=== PATIENT | male | born 1995 | race Caucasian/White ===

== ENCOUNTER 2017-02-14 22:33 | Emergency (ER) | payer SELFPAY ==
[~2017-02-14 22:33] MED LIST: Dextrose 5 % And 0.9 % NaCl 1000 ml Bag ONE; Potassium Chloride 20 MEQ/100 ML PREMIX BAG ONE; Sodium Chloride 0.9% 1,000 ML BAG ONE
[2017-02-14] MEDS ORDERED: Naloxone HCl 0.4 mg/ml Vial ONE (22:38)
[2017-02-14] MEDS ORDERED: Naloxone HCl 2 mg/2 ml Syringe ONE (22:39)
[2017-02-14 23:10] LABS: Band 2 % (5-11); Hemoglobin 15.2 g/dL (14.0-18.0); MDiff Complete? YES; Manual Diff?? YES; Mean Corpuscular HGB CONC 34.4 g/dL (32.0-36.0); Mean Corpuscular Volume 87.2 fL (80.0-94.0); Neutrophil 71 % (42-75); Platelet Count 458 thou/uL (130-400); RBC Distribution Width 11.3 % (11.5-14.5); Red Blood Cell (RBC) Count 5.08 mill/uL (4.70-6.10)
[2017-02-14 23:11] LABS: Anisocytosis SLIGHT = 6-15 cells (100X) (0-5/hpf); Eosinophils 2 % (0-10); Lymphocytes 23 % (21-51); Monocytes 2 % (0-10)
[2017-02-14 23:12] LABS: PLT Morphology Comment Appears Adequate
[2017-02-14 23:16] LABS: Acetaminophen Less than 3.0 mcg/mL (10.0-30.0); Alcohol 117 mg/dL (Less than 10); Anion Gap 23 mmol/L (10-20); BUN (Urea Nitrogen) 17 mg/dL (8.9-20.6); Calc. Creatinine Clearance 0 mL/min (70-130); Carbon Dioxide 17 mmol/L (22-29); Chloride 102 mmol/L (98-107); Estimated GFR-MDRD 67; Salicylate Less than 5.0 mg/dL (15.0-30.0); Sodium 139 mmol/L (136-145)
[2017-02-14] MEDS ORDERED: Dextrose 50% Abboject 50 ML SYRINGE ONE (23:20)
[2017-02-14] MEDS ORDERED: NS 0.9% w/ 40 MEQ KCL 0 ML IV ONE (23:32)
[2017-02-14 23:36] LABS: Amphetamine Detected (NotDetected); Barbiturates Screen Not Detected (NotDetected); Benzodiazepine Screen Not Detected (NotDetected); Cocaine Metabolite Screen Not Detected (NotDetected); Medtox Control Line Valid? VALID (VALID); Methadone Not Detected (NotDetected); Methamphetamine Not Detected (NotDetected); Opiate Screen Not Detected (NotDetected); Oxycodone Screen Not Detected (NotDetected); Phencyclidine (PCP) Not Detected (NotDetected); THC/Cannabinoid Screen Not Detected (NotDetected); Tricyclic Screen Not Detected (NotDetected)
[2017-02-15] MEDS ORDERED: Ziprasidone 20 MG VIAL ONE (00:03)
== END 2017-02-15 01:00 | disposition short-term general hospital (02) ==
LOC: MADERS 22:33
DX: T43.621A Poisoning by amphetamines, accidental (unintentional), initial encounter (principal); T42.4X1A Poisoning by benzodiazepines, accidental (unintentional), initial encounter; T51.91XA Toxic effect of unspecified alcohol, accidental (unintentional), initial encounter; R45.1 Restlessness and agitation; F17.210 Nicotine dependence, cigarettes, uncomplicated
CPT/HCPCS: 36416; 51702; 80048; 80306; 80307; 85025; 94760; 96361; 96372; 96374; 96375; 99292; J2310; J3480; J3486; J7042; J7050

== ENCOUNTER 2018-06-04 07:15 | Emergency (ER) | payer SELFPAY ==
[~2018-06-04 07:15] MED LIST changes: -Dextrose 5 % And 0.9 % NaCl 1000 ml Bag ONE; +Iopamidol 370 76% 100 ML VIAL ONE; -Potassium Chloride 20 MEQ/100 ML PREMIX BAG ONE; -Sodium Chloride 0.9% 1,000 ML BAG ONE
[2018-06-04 08:12] LABS: #Basophils 0.2 thou/uL (0.0-0.2); #Eosinphils 0.4 thou/uL (0.0-0.7); #Lymphocytes 2.3 thou/uL (1.20-3.40); #Monocytes 1.6 thou/uL (0.11-0.59); #Neutrophils 13.1 thou/uL (1.40-6.50); %Basophils 1.1 % (0.0-1.0); %Eosinophils 2.1 % (0.0-10.0); %Monocytes 8.9 % (0.0-10.0); %Neutrophils 74.9 % (42.0-75.0); Hemoglobin 14.2 g/dL (14.0-18.0); Mean Corpuscular HGB CONC 33.9 g/dL (32.0-36.0); Mean Corpuscular Hemoglobin 29.4 pg (27.0-31.0); Mean Corpuscular Volume 86.6 fL (78.0-98.0); Mean Platelet Volume 5.9 fL (7.4-10.4); Platelet Count 364 thou/uL (130-400); RBC Distribution Width 12.3 % (11.5-14.5); Red Blood Cell (RBC) Count 4.84 mill/uL (4.70-6.10); White Blood Cell (WBC) Count 17.5 thou/uL (4.8-10.8)
[2018-06-04 08:27] LABS: ALT (SGPT) 58 U/L (8-55); AST (SGOT) 39 U/L (5-34); Albumin 4.2 g/dL (3.5-5.0); Alkaline Phosphatase 69 U/L (40-150); Anion Gap 15 mmol/L (10-20); BUN (Urea Nitrogen) 12 mg/dL (8.9-20.6); Bilirubin, Total 0.9 mg/dL (0.2-1.2); Calc. Creatinine Clearance 0 mL/min (70-130); Calcium 9.5 mg/dL (7.8-10.44); Carbon Dioxide 26 mmol/L (22-29); Chloride 104 mmol/L (98-107); Estimated GFR-MDRD Greater than 90; Globulin 3.3 g/dL (2.4-3.5); Glucose 95 mg/dL (70-105); Potassium 4.2 mmol/L (3.5-5.1); Protein, Total 7.5 g/dL (6.0-8.3); Sodium 141 mmol/L (136-145)
[2018-06-04] MEDS ORDERED: Naproxen 500 MG TAB ONE (08:33)
[2018-06-04] MEDS ORDERED: HYDROcodone/Acetaminophen 10/325 mg Tablet ONE (08:33)
[2018-06-04] MEDS ORDERED: Clindamycin 150 MG CAP ONE (08:33)
[2018-06-04 08:40] LABS: MONO NEGATIVE CONTROL ZONE White (Negative) (White); MONO POSITIVE CONTROL Pink Line (Positive) (PINK/RED); Mononucleosis NEGATIVE (NEGATIVE)
--- NOTE | 2018-06-04 09:33 | CT ---
CT OF NECK SOFT TISSUES: Date: 06/04/18 INDICATION: Severe right jaw pain, right side otalgia with dysphagia and right side neck edema. FINDINGS: There is enlargement and heterogeneity of the right palatine tonsil with multifocal hypoattenuation, the largest of which measures approximately 1.5 cm, compatible with multifocal right tonsillar absces s formation. This does narrow the oropharyngeal airway with associated leftward deviation. There is r eactive adenopathy bilaterally, more notable on the right, most pronounced at the right Level IIA zon e. Thyroid gland is unremarkable. There is no significant mass effect at the level of the glottis. Th ere is effacement of the right piriform sinus and right vallecula due to edema from the above describ ed inflammatory process. Scattered paranasal sinus mucosal thickening is present. The salivary gland reveals no intrinsic pathology. IMPRESSION: Multifocal right side palatine tonsillar abscess formation with associated edema and adenopathy. Satnam mmend urgent ENT consultation for further characterization, as findings do narrow and displace the or opharyngeal airway. POS: SHIV
== END 2018-06-04 09:30 | disposition home or self-care (01) ==
LOC: MADERS 07:15
DX: J36 Peritonsillar abscess (principal); F17.210 Nicotine dependence, cigarettes, uncomplicated
CPT/HCPCS: 36415; 70491; 80053; 85025; 86308; 87040; 87081; 87430

== ENCOUNTER 2020-04-29 00:13 | Emergency (ER) | payer SELFPAY ==
[2020-04-29] MEDS ORDERED: Ondansetron PF 4 MG/2 ML Vial ONE (00:34)
[2020-04-29] MEDS ORDERED: Ketorolac Tromethamine 30 MG/ML VIAL ONE (00:34)
[2020-04-29 00:40] LABS: #Basophils 0.1 thou/uL (0.0-0.2); #Eosinphils 0.3 thou/uL (0.0-0.7); #Lymphocytes 2.4 thou/uL (1.20-3.40); #Monocytes 0.8 thou/uL (0.11-0.59); #Neutrophils 10.6 thou/uL (1.40-6.50); %Basophils 0.5 % (0.0-1.0); %Lymphocytes 16.9 % (21.0-51.0); %Monocytes 5.7 % (0.0-10.0); Hemoglobin 14.7 g/dL (14.0-18.0); Mean Corpuscular Hemoglobin 28.9 pg (27.0-31.0); Mean Corpuscular Volume 90.1 fL (78.0-98.0); Platelet Count 338 thou/uL (130-400); Red Blood Cell (RBC) Count 5.11 mill/uL (4.70-6.10); White Blood Cell (WBC) Count 14.1 thou/uL (4.8-10.8)
[2020-04-29 01:31] LABS: ALT (SGPT) 28 U/L (8-55); Albumin 4.9 g/dL (3.5-5.0); Alkaline Phosphatase 57 U/L (40-110); Anion Gap 19 mmol/L (10-20); Bilirubin, Total 0.4 mg/dL (0.2-1.2); Calc. Creatinine Clearance 0 mL/min (70-130); Calcium 9.4 mg/dL (7.8-10.44); Carbon Dioxide 21 mmol/L (22-29); Chloride 104 mmol/L (98-107); Estimated GFR-MDRD Greater than 90; Glucose 95 mg/dL (70-105); Protein, Total 7.9 g/dL (6.0-8.3); Sodium 140 mmol/L (136-145)
[2020-04-29 01:36] LABS: Bilirubin Negative (Negative); Blood, Urine Trace (Negative); Clarity Clear (Clear); Glucose, Urine (Dipstick) Negative (Negative); Leukocyte Negative (Negative); Nitrite Negative (Negative); Protein, Urine (Dipstick) Trace mg/dL (Neg-Trace)
[2020-04-29 01:47] LABS: Bacteria/HPF None Seen HPF (None Seen); RBC/HPF 0-3 HPF (0-3); Squamous Epithelial None Seen HPF (0-3); WBC/HPF None Seen HPF (0-3)
[2020-04-29 01:48] LABS: AST (SGOT) 27 U/L (5-34); BUN (Urea Nitrogen) 20 mg/dL (8.9-20.6); Lipase 21 U/L (8-78)
--- NOTE | 2020-04-29 07:18 | CT ---
CT ABDOMEN AND PELVIS WITHOUT IV CONTRAST: Date: 04/29/2020 INDICATION: Left upper quadrant and left lower quadrant abdominal pain with vomiting. COMPARISON: None. FINDINGS: Lung bases are clear. Unopacified liver, gallbladder, pancreas, adrenal glands, and spleen appear within normal limits. No renal or ureteral calculus is evident. No free fluid or enlarged lymph nodes are evident. There is a normal appendix in the right lower quadrant. The bladder is partially decompressed. The rectum and perirectal soft tissues are unremarkable appearing. There is a mild amount of retained stool within the colon. Small bowel is normal in caliber. No free fluid is evident. No enlarged lymph nodes are noted. No acute osseous abnormality is evident. IMPRESSION: No acute abnormality. POS: BH
== END 2020-04-29 03:00 | disposition home or self-care (01) ==
LOC: MADERS 00:13
DX: R10.32 Left lower quadrant pain (principal); F17.220 Nicotine dependence, chewing tobacco, uncomplicated
CPT/HCPCS: 74176; 80053; 81003; 81015; 83690; 85025; 96374; 96375; J1885; J2405